=== PATIENT | female | born 2000 | race Caucasian/White ===

== ENCOUNTER → 2020-02-26 11:16 | Outpatient (CLI) | payer OTHER, SELFPAY ==
[2020-02-27 08:03] LABS: Strep Grp B PCR NEG for Grp B Strep
== END ==
PROVIDERS: Visit Provider Obstetrics & Gynecology
DX: Z34.03 Encounter for supervision of normal first pregnancy, third trimester (principal); Z3A.36 36 weeks gestation of pregnancy
CPT/HCPCS: 87653

== ENCOUNTER → 2020-11-18 09:06 | Outpatient (CLI) | payer OTHER, SELFPAY ==
[2020-11-18 10:12] LABS: COVID19 -Nasal RAPID Negative (Negative)
== END ==
PROVIDERS: PCP Obstetrics & Gynecology; Visit Provider Physician Assistant
DX: Z20.822 Contact with and (suspected) exposure to COVID-19 (principal)
CPT/HCPCS: 87635

== ENCOUNTER 2020-11-21 10:12 | Day surgery (SDC) | payer OTHER, SELFPAY ==
[2020-11-21 10:53] VITALS: BP 104/76; PULSE 83; RESP 18; TEMP 36.7; O2SAT 98; BMI 25.7
[2020-11-21 11:10] VITALS: BMI 25.7
[2020-11-21 11:14] VITALS: BMI 25.7
[2020-11-21] MEDS: LACTATED RINGERS 1,000 ML 42 ML IV ×2 (11:30→14:21)
--- NOTE | 2020-11-21 11:40 | PM.PREOP ---
Pre-operative Note COVID-19 COVID-19 status: Negative Interval Note History & Physical reviewed/Exam performed by Physician: Yes Changes to H&P: No
--- NOTE | 2020-11-21 11:41 | PM.OP.1 ---
Operative Date/Time/Diagnoses Date of procedure: 11/21/20 Time of procedure: 14:35 Pre-op diagnosis: Chronic tonsillitis, tonsil stones, halitosis, tonsillar hypertrophy, dysphagia Post-op diagnosis: other (Same, with mild adenoid hypertrophy) Procedure & Clinicians Procedure: Adenotonsillectomy Same procedure as scheduled: Yes Indications: 20yo female with the above dx incompletely managed with medical therapy presents for the above procedure. Following discussion of the material risks, benefits, complications, and alternatives, the pt elected to proceed. Surgeon: Milan Wilkins Click Yes if Unassisted: Yes Anesthesia Type: General and Local Operative Notes Findings: intact palate, single uvula, 3+ cryptic tonsils with stones, 2+ adenoids Closure Type: not applicable Specimen(s): none sent Estimated Blood Loss (mL): 20 Blood products transfused: none Procedure in detail: Following identification and confirmation of consent the patient was brought to the operating room suite and placed in the supine position. General endotracheal anesthesia was administered. A head wrap, shoulder roll, and mouth gag were placed and a red rubber catheter was inserted through the nostril and out the mouth to retract the soft palate. Partially obstructive adenoid tissue was ablated with suction electrocautery on a setting of 40, without injury to the eustachian tube orifices or choana. The left tonsil was retracted medially and suction electrocautery on a setting of 30 was used to dissect the tonsil in a subcapsular plane, followed by hemostasis with the same. This process was repeated on the right side with identical findings. The tonsillar fossae were superficially infiltrated bilaterally with a 1:1 mixture of 1% lidocaine 1 100,000 epinephrine and 0.25% Marcaine 1 to [id number] epinephrine. Mouth gag and rubber catheter were removed and the patient was extubated in the operating room and taken to the recovery room in stable condition without known complication. Complications: none Post-operative Condition: stable Disposition: same day surgery Plan for aftercare: Tylenol alternating with ibuprofen Q3h, Oxycodone prn breakthrough pain, push fluids
[2020-11-21] MEDS: ALBUTEROL/IPRATROPIUM 3 ML AMPUL INH (13:42)
--- NOTE | 2020-11-21 14:09 | SUR.OPER ---
Supine on padded OR bed, head on gel donut, arms secured on padded arm boards at <90 degrees abduction, legs uncrossed, safety belt at thigh.
[2020-11-21] MEDS: LIDOCAINE 1% W/EPI 20 ML INJ (14:14)
[2020-11-21] MEDS: BUPIVACAINE 0.25% W/ EPI 30 ML VIAL INJ (14:15)
[2020-11-21 14:41] VITALS: BP 103/69; PULSE 103; RESP 12; TEMP 36.8; O2SAT 97
[2020-11-21 14:46] VITALS: BP 123/69; PULSE 103; RESP 14; O2SAT 97
[2020-11-21] MEDS: OXYCODONE/ACETAMINOPHEN 5/325 TABLET 1 TAB PO (15:10)
[2020-11-21 15:15] VITALS: BP 123/70; BP 127/71; PULSE 94; PULSE 97; RESP 12; RESP 16; O2SAT 98
[2020-11-21 15:22] VITALS: BP 119/75; PULSE 97; RESP 14; TEMP 37.1; O2SAT 98
[2020-11-21 15:30] VITALS: BP 108/72; PULSE 93; RESP 17; TEMP 37.4; O2SAT 99
== END 2020-11-21 15:45 | disposition home or self-care (01) ==
PROVIDERS: Referring Provider Otolaryngology; Visit Provider Otolaryngology
PROC: (CPT 42821; principal; 2020-11-21 11:45)
DX: J35.03 Chronic tonsillitis and adenoiditis (principal); J35.8 Other chronic diseases of tonsils and adenoids; R13.12 Dysphagia, oropharyngeal phase; J98.8 Other specified respiratory disorders
CPT/HCPCS: 42821; J0330; J1100; J2405; J2704; J3010